=== PATIENT | male | born 1955 ===

== ENCOUNTER 2020-03-30 06:00 | Day surgery (SDC) | payer OTHER | END 2020-03-30 13:45 | disposition home or self-care (01) | LOC: AMB-ENDOS 06:00 | PROVIDERS: ATTEND Surgery | DX: C18.4 Malignant neoplasm of transverse colon (principal); D12.0 Benign neoplasm of cecum; D12.3 Benign neoplasm of transverse colon; D12.7 Benign neoplasm of rectosigmoid junction; D12.8 Benign neoplasm of rectum; K64.8 Other hemorrhoids; Z20.828 Contact with and (suspected) exposure to other viral communicable diseases; Z12.11 Encounter for screening for malignant neoplasm of colon ==

== ENCOUNTER 2020-05-24 09:00 | Inpatient (IN) | payer OTHER ==
[~2020-05-24] VITALS: Ht 170.2 cm; Wt 109.8 kg
[2020-05-24] MEDS ORDERED: METFORM PO (10:53)
[2020-05-24] MEDS ORDERED: JARDIANCE25 MG PO (10:54)
[2020-05-24] MEDS ORDERED: GLIPIZIDE XL5 MG PO (10:54)
[2020-05-24] MEDS ORDERED: LOSARTAN-HCTZ1 EAC1 PO (10:54)
[2020-05-24] MEDS ORDERED: PROAIR RESPICL90 MCG IH (10:55)
[2020-05-24] MEDS ORDERED: [UNRECOGNIZED DRUG - OTHER] IH (10:55)
[2020-05-24] MEDS ORDERED: FLONASE16 GM (10:56)
[2020-05-30] MEDS ORDERED: MIRALAX510 GM (07:53)
[2020-05-30] MEDS ORDERED: FLOVENT HFA12 GM (07:53)
[2020-05-30] MEDS ORDERED: TADALAFIL20 MG (07:54)
[2020-05-30] MEDS ORDERED: VITAMIN D3125 MCG (07:54)
[2020-05-30] MEDS ORDERED: METFORMIN HCL850 M1 (07:54)
== END 2020-05-30 10:23 | disposition home or self-care (01) | DRG 331 ==
LOC: ADM 09:00 → EDSTATUS 09:00 → SURH 05-27 09:00
PROVIDERS: ADMIT Surgery; ATTEND Surgery
PROC: 07BB4ZZ Excision of Mesenteric Lymphatic, Percutaneous Endoscopic Approach (ICD-10-PCS; 2020-05-27)
PROC: 4A12X4Z Monitoring of Cardiac Electrical Activity, External Approach (ICD-10-PCS; 2020-05-27)
PROC: 0DBL4ZZ Excision of Transverse Colon, Percutaneous Endoscopic Approach (ICD-10-PCS; principal; 2020-05-27 11:00)
DX: C18.4 Malignant neoplasm of transverse colon (principal); R59.0 Localized enlarged lymph nodes; K57.30 Diverticulosis of large intestine without perforation or abscess without bleeding; Z86.010 Personal history of colon polyps; K63.5 Polyp of colon